=== PATIENT | male | born 1960 | race Caucasian/White ===

== ENCOUNTER 2016-11-10 14:13 | Emergency (ER) | payer OTHER ==
[2015-11-03 06:59] VITALS: BMI 20.8
--- NOTE | ~2016-11-10 | CN ---
PATIENT NAME:RAFAELA CARTER MEDICAL RECORD: [id number] : 56 LOCATION:. ADMIT DATE: ACCOUNT: [id number] CONSULTING PHYSICIAN: JULIO BONILLA MD REFERRING PHYSICIAN: SHEILA MCKNIGHT MD DATE OF CONSULTATION: 11/10/2016 CHIEF COMPLAINT: Swelling. I was called to the Emergency Room to see the patient, who was transported from [facility]. He had been given analgesia, Ativan and had been placed in the Trendelenburg position. This was an inguinal scrotal hernia and was extending down into the scrotum. By the time I saw the patient, it was just an inguinal hernia. It was not extending down into the scrotum. The hernia was easily reducible. I think that putting the patient in Trendelenburg helped assist in reducing the hernia. The patient does have Parkinson disease. I have showed him how to keep the hernia reduced and told him that he should keep the hernia reduced as much as he can. This is not an emergency as the hernia is completely reducible. I have contacted and offered Dr. Nichole Romero at [facility] and she will initiate a consultation from the senior care for us to do an inguinal hernia repair on the patient sometime in the next few weeks. The inguinal hernia has been enlarging over the last few weeks. It was more easily reducible last week. Palpation aggravates. Nothing alleviates. Symptoms are difficult to characterize due to the patient's Parkinson disease. The patient describes the pain as a 10 out of 10. He did not appear to be in pain when I saw him, however. PAST MEDICAL AND SURGICAL HISTORY: Gastroesophageal reflux disease, hemorrhoids, dermatitis, plantar fasciitis of the right foot, and Parkinson disease. Right inguinal hernia. ALLERGIES: No known drug allergies. HOME MEDICINES: Amantadine, calcium, polycarbophil, carbidopa and levodopa, docusate sodium, ibuprofen, ropinirole, as well as calcium carbonate. REVIEW OF SYSTEMS: Difficult to obtain from the patient due to his neurologic condition. It is obtained from the senior care chart, no CVA, no myocardial infarction. No lung disease. No GI cancer, no skin cancer or mental illness. The review of systems is negative other than as is described above. SOCIAL HISTORY: No history of drug use in the past. He used alcohol socially. Tobacco socially as well in the past. I have operated on the patient in the past back in 2016 for a rectal prolapse. PHYSICAL EXAMINATION: GENERAL: The patient appears acutely ill. Also appears chronically ill. VITAL SIGNS: Reviewed. HEAD: External ears appear normal. EYES: Extraocular movements are intact. NECK: Trachea is midline. CHEST: No intercostal retractions. PULMONARY: Nonlabored, no stridor. ABDOMEN: No peritonitis. GENITOURINARY: Distended testicles, right inguinal hernia, which is reducible. CONSULT REPORT [id number] RAFAELA CARTER EXTREMITIES: No peripheral cyanosis. INTEGUMENT: The patient does have a rash. BACK: No thoracic kyphosis. LYMPHATICS: No lymphangitic streaking of the exposed extremities. NEUROLOGIC: Markedly abnormal with slow movements and poorly coordinated movements. PSYCHIATRIC: Anxious. IMPRESSION: Right inguinal hernia, enlarging, and symptomatic; however, this does not constitute that he had an emergency. There are no overlying skin changes. No erythema. The hernia was easily reducible after the patient had been placed in the Trendelenburg position. PLAN: Open inguinal hernia repair with mesh sometime in the near future. TRANSINT:[id number] Voice Confirmation ID: [id number] DOCUMENT ID: [id number] JULIO BONILLA MD CC: JOSSELYN MCKNIGHT MD, RAFAELA TRAN MD and NICHOLE ROMERO [id number] DICTATION DATE: 11/10/161654 MACHINE MARKER: 11/11/16 0003 [facility] [address] [place] [address]
[~2016-11-10 14:13] MED LIST: AMANTADINE100 M1 PO; CLARITIN 10 MG10 MG PO; IBUPROFEN600 MG PO; SINEMET 10/101 UDTAB PO; SINEMET 25-1001 EACH PO
== END 2016-11-10 17:22 | disposition other institution (70) ==
LOC: D.ER 14:13
DX: K40.90 Unilateral inguinal hernia, without obstruction or gangrene, not specified as recurrent (principal); K21.9 Gastro-esophageal reflux disease without esophagitis; G20 Parkinson's disease

== ENCOUNTER 2017-01-23 05:02 | Day surgery (SDC) | payer OTHER ==
[~2017-01-23] VITALS: Ht 185.4 cm; Wt 73.5 kg
--- NOTE | ~2017-01-23 | HP ---
PATIENT: RAFAELA CARTER MEDICAL RECORD: [id number] ACCOUNT: [id number] LOCATION:[facility] : 56 ADMISSION DATE: 01/23/17 HISTORY AND PHYSICAL EXAMINATION HISTORY OF PRESENT ILLNESS: The patient has a right inguinal hernia. It is difficult to reduce, but it is reducible. It is a large hernia. We discussed the pathophysiology of inguinal hernias as well as how they can be repaired including the possible complications including bleeding, infection, reherniation. We also discussed that there will likely be a pseudo-sac, accumulation of fluid and this should not be drained. He has had no obstructive symptoms. The hernia is becoming painful and enlarging over the last month. The patient was seen in the Emergency Room. It was reducible and so the patient arrived to the Emergency Room and the hernia was reduced and now he arrives for elective repair. ALLERGIES: No known drug allergies. MEDICINES AT THE LONG TERM: Motrin, Requip, Sinemet, amantadine, carbidopa/levodopa. PAST MEDICAL AND SURGICAL HISTORY: History of hemorrhoidectomy, history of procedure for prolapse and hemorrhoids, gastroesophageal reflux, Parkinson's disease. FAMILY HISTORY: Unknown. SOCIAL HISTORY: Denies drug use. He used alcohol socially in the past, occasional tobacco use. PHYSICAL EXAMINATION: GENERAL: The patient does not appear acutely ill. He does appear chronically ill. VITAL SIGNS: Reviewed. HEAD: External ears appear normal. EYES: Extraocular movements are intact. NECK: Trachea is midline. CHEST: No intercostal retractions. PULMONARY: Nonlabored, no stridor. ABDOMEN: Nontender. GENITOURINARY: Distended testicles, right inguinal hernia that is reducible. INTEGUMENT: There is no rash. NEUROLOGIC: He has Parkinson's tremor. IMPRESSION: Symptomatic right inguinal hernia, enlarging. PLAN: Open right inguinal hernia repair with mesh. TRANSINT:[id number] Voice Confirmation ID: [id number] DOCUMENT ID: [id number] HISTORY AND PHYSICAL [id number] RAFAELA CARTER ROBERT MD CC: JULIO PALMER MD, RAFAELA TRAN MD and NICHOLE SILVERIO [id number] DICTATION DATE: 01/23/17 0816 AUTOMATED MANUFACTURING INSTRUCTOR: 01/23/17 1010 [facility] [address] [place] [address]
--- NOTE | ~2017-01-23 | OP ---
PATIENT NAME: RAFAELA CARTER MEDICAL RECORD: [id number] :56 LOCATION:[facility] ADMISSION DATE: SURGEON: JULIO BONILLA MD DATE OF OPERATION: 01/23/2017 PREOPERATIVE DIAGNOSIS: Symptomatic right inguinal hernia. POSTOPERATIVE DIAGNOSIS: Symptomatic large right indirect inguinal hernia. PROCEDURE: Right indirect inguinal hernia repair with polypropylene mesh. SURGEON: Julio Bonilla MD BALE COVERER: None. BLOOD LOSS: Minimal. ANESTHESIA: General. COMPLICATIONS: None. The risks, possible complications and alternatives to procedure were explained to the patient. The patient elects to proceed. OPERATIVE FINDINGS: The hernia sac was very large. I had entered the hernia sac. There was a sliding component. I used bilayer preperitoneal mesh that was polypropylene mesh as well as onlay mesh around the external ring. OPERATIVE COURSE: The patient was conveyed to the operating room electively on 01/23/2017. General anesthesia was induced by anesthesia staff. The abdomen and genitals was sterilely prepped and draped. A transverse incision was accomplished in the right groin. Sharp dissection was carried out through skin and subcutaneous tissue as well as Osbaldo fascia. External oblique aponeurosis was then cleaned of overlying connective tissue. I incised the external oblique aponeurosis along the direction of its fibers. I bluntly dissected down through the internal oblique and transverse abdominis muscle layers. A preperitoneal pocket was fashioned bluntly. I reduced the hernia in its entirety. A portion of the hernia sac was excised. I reperitonealized with a 3-0 Vicryl suture. I cut 2 ovals out of polypropylene mesh. I sutured the 2 ovals together with #1 Surgidac and then I placed this in the preperitoneal space. I allowed the muscular layers to fall together over the mesh. I sutured the transverse abdominis and internal oblique muscle layers together with the underlying mesh utilizing multiple interrupted horizontal mattresses of 0 Surgidac. The hernia repair still seemed a bit loose to me. For this reason, around the external ring, I was able to mobilize the testicle as well as the spermatic cord. I cut an oval shaped piece of mesh, it slid down through it and then encircled around the cord and sutured the 2 rings together laterally with 0 Surgidac. I then sutured this down to the external ring with #1 Vicryls. The external oblique aponeurosis was closed with running #1 Vicryls. The subdermis was approximated with interrupted 3-0 Vicryls. The skin was approximated with a running intracuticular 4-0 Vicryl. Benzoin and Steri-Strips were applied. The patient was then extubated and conveyed to post-anesthesia care unit where he was in stable condition. There will be no need for him to follow up with me in the office unless he develops complication related to this operative OPERATIVE REPORT [id number] RAFAELA CARTER procedure. TRANSINT:[id number] Voice Confirmation ID: [id number] DOCUMENT ID: [id number] JULIO BONILLA MD CC: JULIO PALMER MD, RIK KOHLER MD, RAFAELA TRAN MD and [id number] L DICTATION DATE: 01/23/17 1005 [employer] MACHINE TENDER: 01/23/17 1113 [facility] 01/23/17 [id number] [place] [address]
[2017-01-23] MEDS ORDERED: ROPINIROLE HCL2 MG PO (05:46)
[2017-01-23 05:53] VITALS: BP 138/80; Ht 185.4 cm; Wt 73.5 kg
== END 2017-01-23 13:30 | disposition home or self-care (01) ==
LOC: D.OPS 05:02
DX: K40.90 Unilateral inguinal hernia, without obstruction or gangrene, not specified as recurrent (principal); K21.9 Gastro-esophageal reflux disease without esophagitis; G20 Parkinson's disease; Z72.0 Tobacco use; Z79.1 Long term (current) use of non-steroidal anti-inflammatories (NSAID); Z79.899 Other long term (current) drug therapy; Z01.812 Encounter for preprocedural laboratory examination